=== PATIENT | female | born 1965 | race Caucasian/White ===

== ENCOUNTER 2018-10-15 12:25 | Emergency (ER) | payer BC, MEDICAID ==
[~2018-10-15] VITALS: Ht 175.3 cm; Wt 72.7 kg
[~2018-10-15 12:25] MED LIST: COL100C PO; DULO-31 PO; HYDR-4384 PO; MILK175C2 PO; MULT-785 PO; VITA1CAP62 PO
[2018-10-15 13:17] VITALS: BP 112/76
[2018-10-15] MEDS ORDERED: ondansetron 4mg rapidly disintigrating tab PO ONE (15:20)
[2018-10-15] MEDS ORDERED: traMADol 50MG tablet PO ONE (15:20)
[2018-10-15] MEDS ORDERED: ONDA4TAB6 PO (15:23)
[2018-10-15] MEDS ORDERED: TOBR5DRO2 RIGHTEYE (15:39)
== END 2018-10-15 15:43 | disposition home or self-care (01) ==
LOC: ER 12:26
DX: H01.003 Unspecified blepharitis right eye, unspecified eyelid (principal); G89.29 Other chronic pain; Z98.890 Other specified postprocedural states; Z79.2 Long term (current) use of antibiotics; Z79.899 Other long term (current) drug therapy
CPT/HCPCS: 99283

== ENCOUNTER 2021-04-15 14:02 | Emergency (ER) | payer BC ==
[~2021-04-15] VITALS: Ht 175.3 cm; Wt 77.0 kg
[~2021-04-15 14:02] MED LIST changes: +ONDA4TAB6 PO; +TOBR5DRO2 RIGHTEYE
[2021-04-15 14:37] VITALS: BP 131/82
[2021-04-15] MEDS ORDERED: ondansetron 4mg rapidly disintigrating tab PO ONE (14:55)
[2021-04-15] MEDS ORDERED: dexamethasone 4mg tablet PO ONE ×2 (14:55→15:00)
[2021-04-15] MEDS ORDERED: ketorolac trometh inj. 60 MG/2 ML VIAL IM ONE (14:55)
[2021-04-15] MEDS ORDERED: benzonatate 100mg capsule PO ONE (15:00)
[2021-04-15] MEDS ORDERED: DEXAMETHASONE 6 MG TABLET PO ONE (15:05)
[2021-04-15] MEDS ORDERED: ketorolac trometh. 30mg/ml inj. IM ONE (15:05)
[2021-04-15] MEDS ORDERED: MELO-100 PO (15:38)
[2021-04-15] MEDS ORDERED: ONDA4TAB6 PO (15:38)
[2021-04-15] MEDS ORDERED: DEXA6TAB6 PO (15:38)
[2021-04-15] MEDS ORDERED: BENZ-16 PO (15:38)
--- NOTE | 2021-04-15 16:43 | NUR ---
pt was seen and assessed by provider
== END 2021-04-15 15:49 | disposition home or self-care (01) ==
LOC: ER 14:02
DX: U07.1 COVID-19 (principal); R06.02 Shortness of breath; R07.89 Other chest pain; R05 Cough; R50.9 Fever, unspecified; R53.83 Other fatigue; R11.0 Nausea; G89.29 Other chronic pain; F32.9 Major depressive disorder, single episode, unspecified; Z86.19 Personal history of other infectious and parasitic diseases; Z98.890 Other specified postprocedural states; Z79.2 Long term (current) use of antibiotics; Z79.899 Other long term (current) drug therapy
CPT/HCPCS: 71045; 96372; 99284; J1885; J8540